=== PATIENT | male | born 1985 | race Caucasian/White ===

== ENCOUNTER 2016-06-06 06:44 | Emergency (ER) | payer OTHER ==
[~2016-06-06] VITALS: Ht 172.7 cm; Wt 62.5 kg
[~2016-06-06 06:44] MED LIST: PROC1TAB8 PO
[2016-06-06 06:51] VITALS: BP 125/89; PULSE 129; RESP 16; TEMP 98.6; O2SAT 97
[2016-06-06] MEDS ORDERED: GABA300C5 PO (06:56)
[2016-06-06] MEDS ORDERED: TRAZ50TA12 PO (06:56)
[2016-06-06] MEDS ORDERED: AMIT100T2 PO (06:56)
--- NOTE | 2016-06-06 08:27 | PD ---
HPI Chief Complaint: Headache Time Seen by Provider: 08:27 Travel History International Travel<30 days: No Contact w/Intl Traveler<30days: No Traveled to known affect area: No PFSH Past Medical History Bipolar Disorder: Yes Anxiety: Yes Depression: Yes Diminished Hearing: No Headaches: Yes (migraines) Neurologic: Yes (BRAIN DEFORMITY PER PT) Immunizations Current: Yes Migraines: Yes Social History Alcohol Use: No Tobacco Use: Yes (2 PPD) Substance Use: No Allergies-Medications (Allergen,Severity, Reaction): Coded Allergies: Amoxicillin (Verified Allergy, Severe, Shortness of Breath, 06/27/15) Haldol (Verified Allergy, Severe, Anaphylaxis, 06/27/15) Molds and Smuts (Verified Allergy, Severe, Shortness of Breath, 06/27/15) Penicillin (Verified Allergy, Severe, Shortness of Breath, 06/27/15) Reported Meds & Prescriptions Reported Meds & Active Scripts Active Reported Amitriptyline (Amitriptyline HCl) 100 Mg Tab 100 Mg PO HS Trazodone (Trazodone HCl) 50 Mg Tab 50 Mg PO HS Gabapentin 300 Mg Cap 300 Mg PO TID Data Data Last Documented VS Vital Signs Date Time Temp Pulse Resp B/P Pulse Ox O2 Delivery O2 Flow Rate FiO2 06/06/16 06:51 98.6 129 16 125/89 97 Maco Shipley MD Jun 06, 2016 08:27
== END 2016-06-06 08:32 | disposition left against medical advice (07) ==
LOC: PHED 06:44
DX: R51 Headache (principal)
CPT/HCPCS: 99281

== ENCOUNTER 2016-06-11 00:30 | Emergency (ER) | payer OTHER ==
[~2016-06-11 00:30] MED LIST changes: +AMIT100T2 PO; +GABA300C5 PO; -PROC1TAB8 PO; +TRAZ50TA12 PO
[2016-06-11 00:45] VITALS: BP 142/88; PULSE 117; RESP 18; TEMP 98.5; O2SAT 97
[2016-06-11] MEDS ORDERED: traZODone HCL 50 MG TAB PO ONE (01:45)
--- NOTE | 2016-06-11 01:55 | PD ---
HPI Chief Complaint: Psychiatric Symptoms Time Seen by Provider: 01:50 Travel History International Travel<30 days: No Contact w/Intl Traveler<30days: No Traveled to known affect area: No History of Present Illness HPI 30-year-old white male presents to emergency department on a voluntary basis for psychological evaluation. The patient states that he just broke up with his girlfriend of 5 years. He found out that she had been cheating with another man. He had found a picture of her naked with another man in bed. The patient states that she has a history of crack cocaine abuse. He states that he started smoking crack cocaine one year ago. He also drinks alcohol and smokes marijuana. He presents for evaluation as he is concerned that he may hurt himself. He has attempted suicide on 2 other occasions. None recently. He does admit to drinking alcohol before coming in. He also states that around 8:00 last night he had smoked crack cocaine. He is requesting his trazodone 50 mg to help him sleep. He states that he does not feel that his substance abuse is a problem. He wants to be evaluated and treated for his depression. He denies any toxic ingestions. He denies any actions of self-harm. No homicidal ideation. No recent illness. PFSH Past Medical History Narrative Medical ADHD, bipolar, schizoaffective disorder ADHD: Yes Bipolar Disorder: Yes Anxiety: Yes Depression: Yes Diminished Hearing: No Headaches: Yes (migraines) Neurologic: Yes (BRAIN DEFORMITY PER PT) Psychiatric: Yes Immunizations Current: Yes Migraines: Yes Tetanus Vaccination: < 5 Years Past Surgical History Surgical History: No Previous Surgery Social History Alcohol Use: No Tobacco Use: Yes (2 packs per day) Substance Use: Yes (MARIJUANA, CRACK COCAINE- LAST USED TODAY ) Allergies-Medications (Allergen,Severity, Reaction): Coded Allergies: Amoxicillin (Verified Allergy, Severe, Shortness of Breath, 06/11/16) Haldol (Verified Allergy, Severe, Anaphylaxis, 06/11/16) Molds and Smuts (Verified Allergy, Severe, Shortness of Breath, 06/11/16) Penicillin (Verified Allergy, Severe, Shortness of Breath, 06/11/16) Reported Meds & Prescriptions Reported Meds & Active Scripts Active Reported Amitriptyline (Amitriptyline HCl) 100 Mg Tab 100 Mg PO HS Trazodone (Trazodone HCl) 50 Mg Tab 50 Mg PO HS Gabapentin 300 Mg Cap 300 Mg PO TID Review of Systems Except as stated in HPI: all other systems reviewed are Neg General / Constitutional: No: Fever, Chills Eyes: No: Diploplia, Blurred Vision HENT: No: Headaches, Lightheadedness Cardiovascular: No: Chest Pain or Discomfort, Palpitations Respiratory: No: Cough, Shortness of Breath Gastrointestinal: No: Nausea, Vomiting, Diarrhea, Abdominal Pain Genitourinary: No: Urgency, Frequency Musculoskeletal: No: Myalgias, Arthralgias, Limited ROM Skin: No Rash, No Itching Neurologic: No: Weakness, Dizziness Psychiatric: Positive: Depression, Suicidal Ideations, Mood Disorder, Substance Abuse, No: Anxiety, Disorder of Thought, Homicidal Ideation Physical Exam Narrative GENERAL: Well-nourished, well-developed patient. SKIN: Warm and dry. HEAD: Normocephalic and atraumatic. EYES: No scleral icterus. No injection or drainage. ENT: No nasal drainage noted. Mucous membranes pink. Airway patent. NECK: Supple, trachea midline. Moves head freely without obvious discomfort. CARDIOVASCULAR: Regular rate and rhythm without murmurs, gallops, or rubs. RESPIRATORY: Breath sounds equal bilaterally. No accessory muscle use. GASTROINTESTINAL: Abdomen soft, non-tender, nondistended. EXTREMITIES: No cyanosis or edema. BACK: Nontender without obvious deformity. No CVA tenderness. NEURO: Patient is alert and oriented. no sensorimotor deficits. Nonfocal. Normal speech. PSYCH: No delusions. No auditory or visual hallucinations. Data Data Last Documented VS Vital Signs Date Time Temp Pulse Resp B/P Pulse Ox O2 Delivery O2 Flow Rate FiO2 06/11/16 00:48 18 06/11/16 00:45 98.5 117 142/88 97 Orders Complete Blood Count With Diff (06/11/16 01:37) Comprehensive Metabolic Panel (06/11/16 01:37) Psych Screen (06/11/16 01:37) Drug Screen, Random Urine (06/11/16 01:37) Alcohol (Ethanol) (06/11/16 01:37) Trazodone (Desyrel) (06/11/16 01:45) Labs Laboratory Tests Test 06/11/16 01:45 White Blood Count 7.8 TH/MM3 Red Blood Count 4.62 MIL/MM3 Hemoglobin 14.1 GM/DL Hematocrit 41.1 % Mean Corpuscular Volume 89.0 FL Mean Corpuscular Hemoglobin 30.6 PG Mean Corpuscular Hemoglobin 34.3 % Concent Red Cell Distribution Width 14.2 % Platelet Count 227 TH/MM3 Mean Platelet Volume 8.2 FL Neutrophils (%) (Auto) 71.9 % Lymphocytes (%) (Auto) 15.0 % Monocytes (%) (Auto) 11.1 % Eosinophils (%) (Auto) 1.5 % Basophils (%) (Auto) 0.5 % Neutrophils # (Auto) 5.6 TH/MM3 Lymphocytes # (Auto) 1.2 TH/MM3 Monocytes # (Auto) 0.9 TH/MM3 Eosinophils # (Auto) 0.1 TH/MM3 Basophils # (Auto) 0.0 TH/MM3 CBC Comment DIFF FINAL Differential Comment Sodium Level 141 MEQ/L Potassium Level 4.5 MEQ/L Chloride Level 110 MEQ/L Carbon Dioxide Level 23.3 MEQ/L Anion Gap 8 MEQ/L Blood Urea Nitrogen 20 MG/DL Creatinine 1.70 MG/DL Estimat Glomerular Filtration 48 ML/MIN Rate Random Glucose 86 MG/DL Calcium Level 8.3 MG/DL Total Bilirubin 0.2 MG/DL Aspartate Amino Transf 17 U/L (AST/SGOT) Alanine Aminotransferase 23 U/L (ALT/SGPT) Alkaline Phosphatase 70 U/L Total Protein 7.2 GM/DL Albumin 4.0 GM/DL Urine Opiates Screen NEG Urine Barbiturates Screen NEG Urine Amphetamines Screen NEG Urine Benzodiazepines Screen NEG Urine Cocaine Screen POS Urine Cannabinoids Screen POS Ethyl Alcohol Level LESS THAN 3 MG/DL MDM Medical Decision Making Medical Screen Exam Complete: Yes Emergency Medical Condition: Yes Medical Record Reviewed: Yes Interpretation(s) Laboratory Tests Test 06/11/16 01:45 White Blood Count 7.8 TH/MM3 Red Blood Count 4.62 MIL/MM3 Hemoglobin 14.1 GM/DL Hematocrit 41.1 % Mean Corpuscular Volume 89.0 FL Mean Corpuscular Hemoglobin 30.6 PG Mean Corpuscular Hemoglobin 34.3 % Concent Red Cell Distribution Width 14.2 % Platelet Count 227 TH/MM3 Mean Platelet Volume 8.2 FL Neutrophils (%) (Auto) 71.9 % Lymphocytes (%) (Auto) 15.0 % Monocytes (%) (Auto) 11.1 % Eosinophils (%) (Auto) 1.5 % Basophils (%) (Auto) 0.5 % Neutrophils # (Auto) 5.6 TH/MM3 Lymphocytes # (Auto) 1.2 TH/MM3 Monocytes # (Auto) 0.9 TH/MM3 Eosinophils # (Auto) 0.1 TH/MM3 Basophils # (Auto) 0.0 TH/MM3 CBC Comment DIFF FINAL Differential Comment Sodium Level 141 MEQ/L Potassium Level 4.5 MEQ/L Chloride Level 110 MEQ/L Carbon Dioxide Level 23.3 MEQ/L Anion Gap 8 MEQ/L Blood Urea Nitrogen 20 MG/DL Creatinine 1.70 MG/DL Estimat Glomerular Filtration 48 ML/MIN Rate Random Glucose 86 MG/DL Calcium Level 8.3 MG/DL Total Bilirubin 0.2 MG/DL Aspartate Amino Transf 17 U/L (AST/SGOT) Alanine Aminotransferase 23 U/L (ALT/SGPT) Alkaline Phosphatase 70 U/L Total Protein 7.2 GM/DL Albumin 4.0 GM/DL Urine Opiates Screen NEG Urine Barbiturates Screen NEG Urine Amphetamines Screen NEG Urine Benzodiazepines Screen NEG Urine Cocaine Screen POS Urine Cannabinoids Screen POS Ethyl Alcohol Level LESS THAN 3 MG/DL Differential Diagnosis MDM: High Differential diagnoses: Schizophrenia, schizoaffective disorder, bipolar, anxiety, depression, adjustment reaction, mood disorder NOS, ODD, depressive disorder NOS, dementia, dementia with agitation, psychosis NOS, substance induced mood disorder, intermittent explosive disorder, Asperger syndrome, infection,electrolyte abnormality, malingering. Narrative Course Mental health screening discussed with the patient. Psychiatric screen ordered. The patient been medically cleared. This is adjustment reaction with depressed mood, substance abuse Diagnosis Primary Impression: Reaction, adjustment, with depressed mood, brief Additional Impression: Substance abuse Condition: Stable Micheal Garrett Jun 11, 2016 01:55
[2016-06-11 02:09] LABS: AUTOMATED NEUTROPHIL # 5.6 TH/MM3 (1.8-7.7); BASOPHIL % 0.5 % (0.0-2.0); EOSINOPHIL # 0.1 TH/MM3 (0-0.4); EOSINOPHIL % 1.5 % (0.0-4.0); HEMATOCRIT 41.1 % (39.0-51.0); HEMO FLAGS DIFF FINAL; LYMPHOCYTE # 1.2 TH/MM3 (1.0-4.8); MEAN CORPUSCULAR HEMOGLOBIN 30.6 PG (27.0-34.0); MEAN CORPUSCULAR HGB CONC 34.3 % (32.0-36.0); MONO % 11.1 % (0.0-8.0); NEUT % 71.9 % (16.0-70.0); PLATELET COUNT 227 TH/MM3 (150-450); RED BLOOD COUNT 4.62 MIL/MM3 (4.50-5.90); RED CELL DISTRIBUTION WIDTH 14.2 % (11.6-17.2); WHITE BLOOD COUNT 7.8 TH/MM3 (4.0-11.0)
[2016-06-11 02:26] LABS: AMPHETAMINE, URINE NEG (NEG); BARBITURATES, URINE NEG (NEG); COCAINE, URINE POS (NEG)
[2016-06-11 02:46] LABS: ALKALINE PHOSPHATASE 70 U/L (45-117); ALT (GPT) 23 U/L (12-78); ANION GAP 8 MEQ/L (5-15); AST (GOT) 17 U/L (15-37); BICARBONATE 23.3 MEQ/L (21.0-32.0); BLOOD UREA NITROGEN 20 MG/DL (7-18); CHLORIDE 110 MEQ/L (98-107); GLOMERULAR FILTRATION RATE 48 ML/MIN (>89); POTASSIUM 4.5 MEQ/L (3.5-5.1); SODIUM (NA) 141 MEQ/L (136-145); TOTAL BILIRUBIN ADULT 0.2 MG/DL (0.2-1.0)
[2016-06-11 06:28] VITALS: BP 118/60; PULSE 89; RESP 20; O2SAT 95
== END 2016-06-11 12:05 | disposition left against medical advice (07) ==
LOC: NEPA 00:30
DX: F43.21 Adjustment disorder with depressed mood (principal); F14.10 Cocaine abuse, uncomplicated
CPT/HCPCS: 80053; 80307; 80320; 85025; 99284

== ENCOUNTER 2016-08-28 05:09 | Emergency (ER) | payer OTHER ==
[~2016-08-28] VITALS: Ht 167.6 cm; Wt 61.1 kg
[2016-08-28 05:16] VITALS: BP 141/83; PULSE 83; RESP 18; TEMP 98.3; O2SAT 98
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
[2016-08-28] MEDS ORDERED: ULTR50TA5 PO (06:30)
[2016-08-28] MEDS ORDERED: IBUP-232 PO (06:30)
[2016-08-28 06:38] VITALS: BP 138/74
[2016-08-28] MEDS ORDERED: KETOROLAC TROMETHAMINE 60 MG/2 ML (IM) VIAL IM ONE (06:45)
== END 2016-08-28 06:56 | disposition home or self-care (01) ==
LOC: PHED 05:09
DX: S70.02XA Contusion of left hip, initial encounter (principal); S60.212A Contusion of left wrist, initial encounter; S20.219A Contusion of unspecified front wall of thorax, initial encounter; F31.9 Bipolar disorder, unspecified; F90.9 Attention-deficit hyperactivity disorder, unspecified type; F17.200 Nicotine dependence, unspecified, uncomplicated; Z79.899 Other long term (current) drug therapy; V03.19XA Pedestrian with other conveyance injured in collision with car, pick-up truck or van in traffic accident, initial encounter
CPT/HCPCS: 71020; 73110; 73130; 73502; 96372; 99283; J1885